=== PATIENT | female | born 1990 | race Caucasian/White ===

== ENCOUNTER 2022-07-25 11:13 | Outpatient (CLI) | payer OTHER, MEDICAID, SELFPAY ==
[2022-07-25 12:31] LABS: Basophils Absolute Auto 0.1 K/mm3 (0.0-0.1); Basophils Percent Auto 1.8 % (0.2-1.2); Eosinophils Absolute Auto 0.2 K/mm3 (0-0.3); Hematocrit 42.5 % (37.0-47.0); Hemoglobin 14.3 g/dL (12.0-15.0); Immature Granulocyte Absolute 0.02 K/mm3 (0.00-0.031); Immature Granulocyte Percent A 0.3 % (0-0.5); Lymphocytes Absolute Auto 2.08 K/mm3 (0.9-3.2); Lymphocytes Percent Auto 34.6 % (18.3-44.2); Mean Corpuscular HGB Conc 33.6 g/dl (32-36); Mean Corpuscular Volume 86.2 fl (80-100); Mean Platelet Volume 9.4 fl (7.4-10.4); Monocytes Absolute Auto 0.4 K/mm3 (0.1-0.6); Monocytes Percent Auto 7.3 % (2.6-8.5); Neutrophils Absolute Auto 3.2 K/mm3 (1.3-6.7); Platelet Count Result 326 k/mm3 (150-375); Red Blood Count 4.93 M/mm3 (4.2-5.4); Red Cell Distribution Width 12.8 % (11.5-14.5)
[2022-07-25 12:42] LABS: Alanine Aminotransferase 43 U/L (6-35); Albumin Level 4.8 g/dL (3.5-5.1); Alkaline Phosphatase 88 U/L (38-126); Anion Gap 8 mmol/L (8-16); Aspartate Amino Transferase 29 U/L (14-36); Bilirubin,Total 0.8 mg/dL (0.2-1.3); Blood Urea Nitrogen 14 mg/dL (7-17); Calcium 9.5 mg/dL (8.4-10.2); Carbon Dioxide 29 mmol/L (22-30); Chloride 101 mmol/L (98-107); Cholesterol 221 mg/dL (0-200); Estimated Glomerular Filt Rate > 60; Glucose 83 mg/dL (65-110); HDL Direct 56 mg/dL; Potassium 4.2 mmol/L (3.4-5.0); Sodium 138 mmol/L (137-145); Triglycerides 100 mg/dL (<150)
[2022-07-25 12:52] LABS: LDL Cholesterol Direct 126 mg/dL
[2022-07-25 12:56] LABS: Hemoglobin A1C 5.3 % (<5.7)
[2022-07-25 13:01] LABS: Vitamin D 25 Hydroxy 33.3 ng/mL
== END 2022-07-25 11:14 | disposition home or self-care (01) ==
PROVIDERS: Visit Provider Nurse Practitioner
DX: E66.9 Obesity, unspecified (principal)
CPT/HCPCS: 36415; 80053; 80061; 82306; 83036; 85025

== ENCOUNTER 2024-05-25 17:01 | Outpatient (CLI) | payer OTHER, SELFPAY ==
--- OUTSIDE RECORDS SUMMARY | 2024-05-25 17:07 | XMS_ITS | Clinical Summary ---
Author Organization [facility] Address [address] [place] [address] Care Team Providers Care Laborer Gold Leaf Name Role Phone Courtney Cole MD Primary Care Provider [phone] Source Comments [facility],non-owned Affiliates and Associated Physician Practices is amultiple site organization consisting of ambulatory clinics and hospital sitesin [place], [place], [place] and [place]. This disclosure is being madepursuant to the Care Everywhere program and may not contain all information available regarding this patient. Last updated 17.[facility] Allergies No known active allergies Medications * Be aware that medications may not be up to date on this document. Alwaysverify current medications with the patient. Medication Sig Dispensed Refills Start Date End Date Status escitalopram (LEXAPRO) 20 MG tablet once daily 07/25/2020 Active Citalopram Hydrobromide (CITALOPRAM PO) Take by mouth once daily Active levothyroxine (SYNTHROID) 100 MCG tablet levothyroxine 100 mcg tablet Active levonorgestrel (MIRENA, 52 MG,) 20 MCG/24HR IUD daily Active tretinoin (RETIN-A) 0.05 % cream Pea sized amount to entire face at night. 30 days supply. 20 g 3 10/31/2020 Active metFORMIN ER 24hr (GLUCOPHAGE XR) 500 MG tablet metformin ER 500 mg tablet,extended release 24 hr 11/25/2020 Active spironolactone (ALDACTONE) 50 MG tablet Take 3 (three) tablets by mouth once daily 90 tablet 1 06/30/2021 Active spironolactone (ALDACTONE) 50 MG tablet TAKE 3 TABLETS BY MOUTH EVERY DAY ( TAKE 1 TABLETFOR 2 WEEKS, THEN 2 TABLETS, THEN INCREASE IF TOLERATED) 90 tablet 07/01/2021 Active Additional Information Patient not taking.Reported on 07/13/2023 spironolactone (Aldactone) 50 MG tablet TAKE 3 TABLETS BY MOUTH EVERY DAY ( TAKE 1 TABLET FOR 2 WEEKS, THEN 2 TABLETS, THEN INCREASE IF TOLERATED) 90 tablet 09/29/2021 Active Additional Information Patient not taking.Reported on 07/13/2023 spironolactone (Aldactone) 50 MG tablet TAKE 3 TABLETS BY MOUTH EVERY DAY ( TAKE 1 TABLET FOR 2 WEEKS, THEN 2 TABLETS, THEN INCREASE IF TOLERATED) 90 tablet 11/13/2021 Active Additional Information Patient not taking.Reported on 07/13/2023 levothyroxine (Synthroid) 175 MCG tablet Take 1 (one) tablet by mouth once daily 06/03/2023 Active tirzepatide (Mounjaro) 2.5 MG/0.5ML injection Inject 10 (ten) mg subcutaneously every 7 days 03/18/2023 Active Zepbound 10 MG/0.5ML injection Inject 10 (ten) mg subcutaneously every 7 days 04/23/2023 Active Victoza 18 MG/3ML pen Inject 1.8 mg subcutaneously once daily 08/08/2021 Active clobetasol (Temovate) 0.05 % ointment Apply to affected area 2 times daily as needed 03/03/2023 Active azelaic acid (Finacea) 15 % gel Apply to affected area as needed Active Active Problems Problem Noted Date Diagnosed Date Submandibular sialolithiasis 07/13/2023 Immunizations Name Administration Dates Next Due FLU VACCINE QUAD IIV4 SPLIT 0.25 ML IM ,12/12/2018 Family History Medical History Relation Name Comments None Known Brother Psoriasis Father None Known Maternal Aunt None Known Maternal Grandfather None Known Maternal Grandmother None Known Maternal Uncle None Known Mother None Known Other None Known Paternal Aunt None Known Paternal Grandfather None Known Paternal Grandmother None Known Paternal Uncle None Known Sister Asthma Neg Hx CVA Neg Hx Cancer - Breast Neg Hx Cancer - Other Neg Hx Cancer - Skin, Melanoma Neg Hx Cancer - Skin, Non Melanoma Neg Hx Eczema Neg Hx Hemophilia Neg Hx Relation Name Status Comments Brother Father Maternal Aunt Maternal Grandfather Maternal Grandmother Maternal Uncle Mother Other Paternal Aunt Paternal Grandfather Paternal Grandmother Paternal Uncle Sister Social History Tobacco Use Types Packs/Day Years Used Date Smoking Tobacco: Never Smokeless Tobacco: Never Tobacco Cessation:Counseling Given: Not Answered Alcohol Use Standard Drinks/Week Comments Yes 0 (1 standard drink = 0.6 oz pur e alcohol) 1 glass a month Sex and Gender Information Value Date Recorded Sex Assigned at Not on file Gender Identity Not on file Sexual Orientation Not on file Last Filed Vital Signs Vital Sign Reading Time Taken Comments Blood Pressure 111/76 07/13/2023 1:24 PM CDT Pulse 67 07/13/2023 1:24 PM CDT Temperature - - Respiratory Rate - - Oxygen Saturation - - Inhaled Oxygen Concentration - - Weight 76.2 kg (168 lb) 07/13/2023 1:24 PM CDT Height 165.1 cm (5' 5 ) 07/13/2023 1:24 PM CDT Body Mass Index 27.96 07/13/2023 1:24 PM CDT Plan of Treatment Upcoming Encounters Date Type Department Care Team (Late st Contact Info) Description 07/06/2024 1:00 PM CDT Office Visit [facility] - ENT [address] [place] [phone] Jens Blair MD [address] [place] [address] [place] [address] Health Maintenance Due Date Last Done Comments PAP SMEAR 1988 HIV SCREENING 05/14/2003 HEPATITIS C SCREENING 05/09/2006 DTAP/TDAP/TD VACCINES (1 - Tdap) 05/14/2007 HEPATITIS B VACCINE (1 of 3 - 19+ 3-dose series) 05/14/2007 COVID-19 VACCINE (1 - 2023-2 5 season) 2023 DEPRESSION SCREENING 02/16/2024 INFLUENZA VACCINE (Season Ended) 2024 01/04/2019, 12/12/2018 ZOSTER VACCINE (1 of 2) 2038 HIB VACCINE Aged Out No longer eligi ble based on patient's age to complete this topic HPV VACCINE Aged Out No longer eligi ble based on patient's age to complete this topic MENINGOCOCCAL (Group B) VACCINE SHARED DECISION-MAKING Aged Out No longer eligible based on patient's age to complete this topic MENINGOCOCCAL GROUPS A/C/Y/W VACCINE Aged Out No longer eligible b ased on patient's age to complete this topic PNEUMOCOCCAL VACCINE Aged Out No long er eligible based on patient's age to complete this topic Care Teams Laborer Gold Leaf Relationship Specialty Start Date End Date Courtney Cole MD PCP - General 07/10/20
--- OUTSIDE RECORDS SUMMARY | 2024-05-25 17:07 | XMS_ITS | Data Portability ---
Author Organization Renee RANDALL Address [address] [place] [address] Care Team Providers Care Cuff Turner Name Role Phone ZURDO AMES Primary Care Provider Unavailabl e Assessment Encounter Date Assessment Date Assessment LastModified by Organization Details LastModified Time 03/18/2023 03/18/2023 32 year old woman with past medical history of hypothyroidis m, anxiety here to meet PCP, refill medications. Not available 03/18/2023 15:27:36 Plan of Treatment Reminders Order Date Submit Date Provider Last Modified By Organization Details Last Modified Time Details Appointments None recorded. Lab TSH, serum or plasma [address], [place], [address], 4 16:09:27 TSH + free T4, serum 2022 023 [facility], [address] [facility], [address], [place], [address], 3 08:24:05 HbA1c (hemoglobi n A1c), blood 2021 022 [email or web address] In-Office Order, Internal Use Only DO Not Attach Compendium DO Not Attach Compendium, Do Not Delete/merge, [id number] 2 09:53:58 TSH + free T4, serum 2021 022 [facility], [address] [facility], [address], [place], [address], 2 04:07:54 TSH + free T4, serum 2021 [facility], [address], [address], [place], [address], 2 08:18:03 Referral dermatolog ist referral 2020 021 ELOY Not available 15:42:22 bariatric medicine referral 2020 021 [facility] ([facility] Management), [address] [facility] , [address], [address], 16:14:27 registered medical assistant referral [address] [facility], [address] [facility] [place], [address], 2 05:00:58 Procedures None recorded. Surgeries None recorded. Imaging None recorded. Medication Orders escitalopr am 20 mg tablet 2023 024 [facility], [address] [place] [address], [id number], 4 14:37:05 levothyrox ine 175 mcg tablet 2023 024 [facility], [address] [place] [address], [id number], 4 14:37:03 escitalopr am 20 mg tablet 2021 022 [facility], [address] [place] [address], [id number], 2 12:38:48 Patient TargetsNo targets recorded. Patient Instructions Encounter Date Encounter Id Patient Instructions Last Modified By Organization Details Last Modified Time 07/01/2020 [id number] I was present and available in the Family Medicine clinic to discuss this patient's care during the appointment. I agree with the resident's assessment and plan as documented. KGR [email or web address] Not available 07/03/2020 08:34:39 08/01/2021 [id number] I was present and available in the family medicine clinic to discuss the patient's care during the appointment and the case was discussed with me. I agree with the resident's assessment and plan as documented. HL [email or web address] Not available 08/04/2021 10:08:45 01/19/2022 [id number] I was present and available in the family medicine clinic to discuss the patient's care during the appointment and the case was discussed with me. I agree with the resident's assessment and plan as documented. HL [email or web address] Not available 01/19/2022 15:28:22 05/12/2022 [id number] I was present and available in the family medicine clinic to discuss the patient's care during the appointment. I agree with the resident's assessment and plan as documented. Edgardo Bhatia [email or web address] Not available 05/14/2022 11:53:19 03/18/2023 [id number] A healthy lifestyle: care instructions Not available 03/18/2023 14:35:21 agree w plan and treatment and was present Dr. 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 Jose Enrique kaur for Weight loss Weight loss Referring Physician: Courtneyoscar [facility], Encounter Date: 07/01/2020 News Specialist Referral for A cne Acne, requesting acutane Referring Physician: Courtneyoscar [facility], Encounter Date: 07/01/2020 Results Created Date Observation Date Name Description Value Unit Range Abnormal Flag Note LastModifiedBy Organization Detail LastModifiedTime 06/29/19 21 06/29/2020 TSH + free T4, serum TSH 0.059 uIU/m L 0.450- 4.500 below low normal Not Available [facility] ([facility]) [address] [place], [address], 06/29/2020 05:09:31 06/29/19 21 06/29/2020 TSH + free T4, serum T4,free(dire ct) 1.49 NG/dL 0.82-1 .77 Not Available [facility] ([facility]) [address] [place], [address], 06/29/2020 05:09:31 11/09/19 21 11/09/2020 TSH+F REE T4 TSH 23.400 uIU/m L 0.450- 4.500 above high normal Not Available [facility] ([facility]) [address] [place], [address], 11/09/2020 08:17:10 11/09/19 21 11/09/2020 TSH+F REE T4 T4,free(dire ct) 0.74 NG/dL 0.82-1 .77 below low normal Not Available [facility] ([facility]) [address] [place], [address], 11/09/2020 08:17:10 01/14/20 21 01/14/2021 TSH+F REE T4 TSH 3.480 uIU/m L 0.450- 4.500 Not Available [facility] ([facility]) [address] [place], [address], 01/14/2021 08:17:39 01/14/20 21 01/14/2021 TSH+F REE T4 T4,free(dire ct) 1.35 NG/dL 0.82-1 .77 Not Available [facility] ([facility]) [address] [place], [address], 01/14/2021 08:17:39 08/02/19 22 08/02/2021 TSH+F REE T4 TSH 0.714 uIU/m L 0.450- 4.500 Not Available [facility] ([facility]) [address] [place], [address], 08/02/2021 08:18:03 08/02/19 22 08/02/2021 TSH+F REE T4 T4,free(dire ct) 1.52 NG/dL 0.82-1 .77 Not Available [facility] ([facility]) [address] [place], [address], 08/02/2021 08:18:03 01/20/20 22 01/20/2022 TSH+F REE T4 TSH 13.800 uIU/m L 0.450- 4.500 above high normal Not Available [facility] ([facility]) [address] [place], [address], 01/20/2022 04:07:54 01/20/20 22 01/20/2022 TSH+F REE T4 T4,free(dire ct) 1.07 NG/dL 0.82-1 .77 Not Available [facility] ([facility]) [address] [place], [address], 01/20/2022 04:07:54 01/20/20 22 01/19/2022 HbA1c (hemo globi n A1c), blood HbA1c 5.4% Not Available In-Office Order Internal Use Only DO Not Attach Compendium DO Not Attach Compendium, Do Not Delete/merge, [id number] 01/19/2022 09:43:21 05/13/19 23 2022 TSH+F REE T4 TSH 1.240 uIU/m L 0.450- 4.500 Not Available [facility] ([facility]) [address] [place], [address], 2022 08:24:05 05/13/19 23 2022 TSH+F REE T4 T4,free(dire ct) 1.18 NG/dL 0.82-1 .77 Not Available [facility] ([facility]) [address] [place], [address], 2022 08:24:05 Result Notes None recorded. Problems Name Problem SNOMED Code Status Onset Date Resolution Date Notes Provider Name and Address Organization Details Recorded Time Hypothyroidis m 73194442 Active 2018 Zurdo Ames MD Attn: Accounting ,[address] [facility], [place], [address] , [place] - [facility] 4 16:21:06 Weight gain 6024202 Active 2019 Not Available [facility] 2 22:36:57 Rosacea 875923896 Active 2019 Not Available [facility] 2 22:36:57 Notes:Some problems listed i n Documents: #[id number], #[id number] could not be added to this patient's chart. Please review these documents and add these problems to the patient's chart manually as needed. Problem Notes None recorded. Procedures Surgical History Date Name Laterality Status Provider Name and Address Organization Details Recorded Time 1 IUD Removal completed Cruzito Brue [place] [facility] 05/03/2020 16:27:15 1 IUD Insertion completed Cruzito Brue [place] [facility] 05/03/2020 16:28:59 Imaging Results None recorded. Procedure Notes None recorded. Medical Equipment None Reported. Allergies No known drug allergies Medications Name Sig Start Date Stop Date Status Note LastModified by Organization Details LastModified Time Mirena 21 mcg/24 hr (up to 8 years) 52 mg intrauter ine device Take 1 device every day by intraute rine route as directed for 1 day. 2020 active Not Available Not Available Not Avai lable levothyro xine 175 mcg tablet Take 1 tablet every day by oral route for 30 days, for hypothyr oidism. [address] Ames to fill medicati on, however, he does want the patient to have lab order drawn . It was discusse d with the patient today , the importan ce of having the lab drawn. She voiced understa nding. Not Available Not Available Not Available tretinoin 0.025 % topical cream 08/01 completed Not Available Not Available Not Available benzoyl peroxide 5 % topical gel APPLY TO THE AFFECTED AREA(S) BY TOPICAL ROUTE ONCE DAILY 08/01 completed Not Available Not Available Not Available diphenoxy late-atro pine 2.5 mg-0.025 mg tablet 12/12 completed Not Available Not Available Not Available tretinoin 0.05 % topical cream APPLY TO THE AFFECTED AREA(S) BY TOPICAL ROUTE ONCE DAILY AT BEDTIME 08/01 completed Not Available Not Available Not Available triamcino lone acetonide 0.1 % topical cream APPLY A THIN LAYER TO THE AFFECTED AREA(S) BY TOPICAL ROUTE 2 TIMES PER DAY 08/01 completed Not Available Not Available Not Available levothyro xine 100 mcg tablet Take 1 tablet every day by oral route. 08/01 completed Not Available Not Available Not Available hydrocort isone 2.5 % topical cream with perineal applicato r active Not Available Not Available Not Available clindamyc in 1 % topical gel APPLY A THIN LAYER TO THE AFFECTED AREA(S) BY TOPICAL ROUTE 2 TIMES PER DAY 08/01 completed Not Available Not Available Not Available triamcino lone acetonide 0.025 % topical cream APPLY CREAM TO FACE TWICE DAILY FOR ONE WEEK 07/01 completed Not Available Not Available Not Available levothyro xine 150 mcg tablet TAKE ONE TABLET BY MOUTH EVERY DAY 06/01 completed dosage increase d to 175mcg Not Available Not Available Not Available levothyro xine 200 mcg tablet Take 1 tablet(s ) every day by oral route. 11/14 completed Not Available Not Available Not Available clobetaso l 0.05 % topical ointment active Not Available Not Available Not Available metformin ER 500 mg tablet,ex tended release 24 hr 03/18 completed Not Available Not Available Not Available spironola ctone 50 mg tablet TAKE THREE TABLETS BY MOUTH EVERY DAY active Not Available Not Available No t Available amoxicill in 875 mg-potass ium clavulana te 125 mg tablet 12/12 completed Not Available Not Available Not Available escitalop hiro 20 mg tablet TAKE ONE TABLET BY MOUTH EVERY DAY active Not Available Not Available No t Available azelaic acid 15 % topical gel active Not Available Not Available Not Available metronida zole 1 % topical gel APPLY TO THE AFFECTED AREA(S) BY TOPICAL ROUTE ONCE DAILY ; RUB IN GENTLY AND COMPLETE LY 07/01 completed Not Available Not Available Not Available clindamyc in-tretin oin 1.2 %-0.025 % topical gel 07/01 completed Not Available Not Available Not Available Victoza 3-Sincere 0.6 mg/0.1 mL (18 mg/3 mL) subcutane ous pen injector 03/18 completed Not Available Not Available Not Available Mirvaso 0.33 % topical gel with pump APPLY A PEA-SIZE D AMOUNT BY TOPICAL ROUTE ONCE DAILY TO COVER AREAS OF FACE WITH THIN LAYER AVOIDING THE EYES AND LIPS 2022 active Not Available Not Available Not Avai lable TRUEplus Pen Needle 31 gauge x / active Not Available Not Available Not Available Mounjaro 7.5 mg/0.5 mL subcutane ous pen injector active Not Available Not Available Not Available Mounjaro 5 mg/0.5 mL subcutane ous pen injector 03/18 completed Not Available Not Available Not Available Mounjaro 10 mg/0.5 mL subcutane ous pen injector active Not Available Not Available Not Available Mounjaro 2.5 mg/0.5 mL subcutane ous pen injector INJECT 1 SYRINGE SUBCUTAN EOUSLY ONCE A WEEK active Not Available Not Available No t Available Zepbound 10 mg/0.5 mL subcutane ous pen injector active Not Available Not Available Not Available Vitals Date Recorded Body height Body mass index (BMI) Body weight Heart rate Oxygen saturation Oxygen saturation in Arterial blood by Pulse oximetry Body temperature Systolic blood pressure Diastolic blood pressure Provider Name and Address Organization Details Last Updated DateTime 1 165.1 cm 36.7 kg/m2 26868.0 7 g 77 /min 98 % 98 % 98.7 [degF] 116 mm[Hg] 66 mm[Hg] Yaron Whyte CMA [place] - [facility] 1 17:22:59 Date Recorded Body weight Heart rate Body temperature Oxygen saturation Oxygen saturation in Arterial blood by Pulse oximetry Systolic blood pressure Diastolic blood pressure Provider Name and Address Organization Details Last Updated DateTime 2 04347.3 6 g 82 /min 98.5 [degF] 98 % 98 % 110 mm[Hg] 64 mm[Hg] Penny Mc CMA [facility] 2 12:16:21 Date Recorded Body height Body mass index (BMI) Body weight Heart rate Body temperature Oxygen saturation Oxygen saturation in Arterial blood by Pulse oximetry Systolic blood pressure Diastolic blood pressure Provider Name and Address Organization Details Last Updated DateTime 2 165.1 cm 38.3 kg/m2 417735. 25 g 78 /min 98.4 [degF] 98 % 98 % 118 mm[Hg] 66 mm[Hg] Elizabeth Mendez MA [facility] 2 09:08:04 Date Recorded Body height Body mass index (BMI) Body weight Heart rate Oxygen saturation Oxygen saturation in Arterial blood by Pulse oximetry Body temperature Systolic blood pressure Diastolic blood pressure Provider Name and Address Organization Details Last Updated DateTime 3 165.1 cm 36.5 kg/m2 32200.5 3 g 69 /min 98 % 98 % 98.6 [degF] 116 mm[Hg] 72 mm[Hg] Reva Yee MA [facility] 3 14:05:15 Date Recorded Body height Body temperature Heart rate Oxygen saturation Oxygen saturation in Arterial blood by Pulse oximetry Body mass index (BMI) Body weight Systolic blood pressure Diastolic blood pressure Provider Name and Address Organization Details Last Updated DateTime 4 165.1 cm 98.1 [degF] 68 /min 99 % 99 % 29.5 kg/m2 22741 g 113 mm[Hg] 75 mm[Hg] Kathleen Cano MA [facility] 4 14:05:53 Social History Question Answer Notes LastModified by Organizat ion Details LastModified Time Tobacco Smoking Status Never Smoker Prashanth moreira [facility] 12/12/2018 15:05:05 What Is Your Level Of Alcohol Consumption? Occasional Information not available 05/03/2020 Do You Or Have You Ever Used E-cigarettes Or Vape? Never Used Electronic Cigarettes Information not available 09/11/2019 What Was The Date Of Your Most Recent Tobacco Screening? 03/18/2023 [email or web address] Information not available 03/18/2023 Do You Or Have You Ever Used Smokeless Tobacco? Never Used Smokeless Tobacco Information not available 09/11/2019 How Much Tobacco Do You Smoke? No Information not available 09/11/2019 Do You Use Any Illicit Or Recreational Drugs? No Information not available 05/03/2020 Sex: Unknown Functional Status None recorded. Mental Status None recorded. Family History Nothing Reported. Medical History No medical history recorded. Gynecological HistoryNo gynecological history recorded. Obstetrics History GPAL:G 0 P 0 0 0 0 Immunizations Vaccine Type Date Status Note Provider Nam e and Address Organization Details Recorded Time Influenza, split virus, quadrivalent, preservative 9 completed Not Available [facility] 03/04/2019 02:38:43 Influenza, split virus, quadrivalent, preservative 9 completed Not Available [facility] 03/04/2019 02:38:46 Past Encounters Encounter ID Performer Location Encounter Start Date Encounter Closed Date Diagnosis/Indication Diagnosis SNOMED-CT Code Diagnosis ICD10 Code Diagnosis Note [id number] Maria Teresa Kimball MD [facility] [address] [address] 12/12/2018 14:47:31 12/13/2018 12:27:31 Hypothyroidism 37779711 E03.9 Chronic, uncontroll ed- Has been on synthroid since 10- Refill levothyrox ine 150, will repeat labs in 6 weeks and change dose as needed Anxiety disorder 6916805 06 F41.9 Chronic, controlled - States medication helps with symptoms, continue escitalopr am 20 mg- Change medication / refer to counselor if symptoms worsen. 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 Advised to pack her own lunch eat more vegetables and lean meats.- Pt unsure about how long her IUD in place, she will contact her previous provider and find out. Advised that we can remove/rep lace her IUD in the future. Active or passive immunization 463690749 Z23 [id number] MD Tip Rooney [address] [facility] [address] [place] [address] 07/31/2019 12:19:25 08/01/2019 13:50:42 Hypothyroidism 08932656 E03.9 Chronic, uncontroll ed- Has been on synthroid since 10- Decrease synthroid from 200 > 175, repeat TSH and free T4 in 6 weeks Adult heal th examination 415858854 Z00.00 - Pt was advised on 30 minutes of mild-moder ate intensity exercise 5x a week.- Counselled on her diet and exercise. Importance of compliance to reduce her risk for heart disease and stroke- Given recent weight gain will order CMP, lipid panel, and HgbA1c to screen for diabetes, HLD, and DEJESUS. Active or passive immunization 956756719 Z23 [id number] Shanti glez MD [facility] [address] [facility] [address] [place] [address] 09/11/2019 08:31:04 09/12/2019 08:40:41 Obesity 091884978 E66.9 Wt: 238 lb (from 226 lb in 11/2018), BMI 38.7HbA1C (5.2), Lipid Panel remarkable for borderline high cholestero l and TGs. Synthyroid dose adjusted at last visit- Weight loss plan discussed with patient including limiting daily calorie intake to 2083-1504 calories to lose 0.5-1lb/we ek. 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 on chronic, unable to assess via phone but appears to be nodulocyst ular inflammato ry on Hxpatient works with Derm, who recommende d metrogel and triamcinol one regimendis cussed normal triple therapy regimen of topical benzoyl, topical abx and oral abxpatient wishes to utilize derm regimentco unseled on risks of steroid use to face, patient aware and accepting of riskwill send for metrogel 1% topical once daily to affected areaswill send for triamcinol one 0.1%, apply BID for 2 weeks to affected areasf/u in 203 weeks with PCP, recommend discussion of steroid cream, and triple therapy regimen [id number] Saroj Mann MD [address] [address] 03/08/2020 08:56:00 03/11/2020 07:41:10 Nodulocystic acne 271924147 L70.0 acute on chronic, unable to assess via phone but appears to be nodulocyst ular inflammato ry per patient - Discussed trying topic tretinoin + topical antibiotic prior to proceeding to oral antibiotic , patient amendable- Follow-up in 2-3 months, if symptoms persist will initiate oral ABx [id number] Marv Ortega MD [address] [address] 04/23/2020 08:31:19 04/24/2020 11:07:06 Contraception care 275954020 Z30.40 Discussed contracept josé luis options- Patient would like to have another Mirena placed.- Appt scheduled for 05/03/2020- Discussed management plan including risk/benef its. Pt voiced understand ing. All questions answered [id number] Cruzito Woo [address] [address] 05/03/2020 15:27:13 2020 08:55:28 Removal of intrauterine device 14618604 Z30.432 Insertion of intrauterine contraceptive device 73085002 Z30.430 Mirena was removed and replaced. Consent signed. Timeout performed. Pt tolerated the procedure without complicati ons. [id number] Tommie Britton MD [address] [address] 07/01/2020 17:05:05 07/02/2020 14:52:02 Weight loss 48061200 R63.4 BMI: 36.7 - Discussed dietary strategies : Emphasizin g reduced caloric intake. Recommende d any diet in which caloric intake is less than caloric expenditur e will lead to weight loss. A deficit of at least 500 kcal per day can be achieved with intake of 1,200 to 1,500 kcal for women and 1,500 to 1,800 kcal for men. The 2015 2020 Dietary Guidelines for Americans reinforce the need to make healthier food and beverage choices by consuming nutrient-d ense foods from all food groups and limiting intake of added sugars, saturated fats, and sodium. -Discussed increasing physical activity: The National [place] for [employer] and Care Excellence recommends 45 to 60 minutes per day of moderate-i ntensity exercise to prevent obesity and 60 to 90 minutes per day to avoid regaining weight - Referral to weightloss mgmt program and RD placed Acne 01493628 L70.9 chronic, uncontroll ed - Patient has had some improvemen t with topical clindamyci n and tretinoin but would like to consider accutane - Will place referral to derm [id number] MD Tip Russell [address] [address] 08/01/2021 11:50:53 08/05/2021 10:33:15 Anxiety disorder 218435706 F41.9 Chronic, controlled ALEXIS-7: 6 (mild)- States medication helps with symptoms, continue escitalopr am 20 mg- Change medication / refer to counselor if symptoms worsen Adult [facility] examination 620727439 Z00.00 - Pt was advised on 30 minutes of mild-moder ate intensity exercise 5x a week.- Counselled on her diet, 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 Advised to pack her own lunch eat more vegetables and lean meats. Hypothyroidism 60164578 E03.9 Chronic, uncontroll ed- Continue levothyrox ine 150 mcg- Check TSH + T4 Excessive sweating 34636 005 R61 Discussed sxs are likely d/t anxiety.- Discussed changing antiperspi rant and using baby powder. If sxs continue to persist and are distressin g can consider topical or oral glycopyrro late [id number] MD Tip Russell [address] [address] 01/19/2022 08:44:55 01/20/2022 12:20:12 Hypothyroidism 50531614 E03.9 Chronic, Ron' s per patient- Worsening of symptoms (diarrhea, weight gain, fatigue)_P arthur- Recheck TSH/T4 and adjust dosing of synthroid if needed Excessive weight gain 22 9975082 R63.5 Note from bariatric surgery from 01/30/21 showed weight gain due to excessive caloric intake- Patient has been keeping a diary of her calories at home and will bring it next appt- She has been on metformin and Victoza in the past, but does not have a diagnosis of diabetes and A1c was 5.4% today. These were likely given for weight loss.Plan- Check thyroid function, if normal we will meet again to discuss further weight loss goals and diet goals- In the future, can consider a GLP to assist with weight loss but would hold off on phentermin e Hyperglycemia 53936860 R 73.9 [id number] Edgardo Bhatia MD [place] [address] [address] [address] 05/12/2022 13:37:21 2022 09:44:08 Hypothyroidism 16637260 E03.9 Chronic, Ron' s per patient- Symptoms improving- TSH elevated at 13.8, synthroid increased to 175 mcgPlan- Continue levothyrox ine to 175 mcg- Obtain TSH and T4 Difficulty maintaining weight loss 375687689 E66.9 We discussed medication options, specifical ly GLPs which for weight loss can be expensive. They are FDA approved for this. She would like to stick with her weight loss program and exercise. [id number] Eddie Hernandez MD [place] [address] [address] 03/18/2023 13:58:38 03/22/2023 14:05:37 Hypothyroidism 33368428 E03.9 hypothyroi dism stable on levothyrox ine 175mcglast TSH April 2022 WNLcontinu e levothyrox ine 175mcgrepe at TSH Anxiety disorder 5062927 06 F41.9 anxiety well controlled with escitalopr am 20mgcontin ue escitalopr am 20mg Overweight 730056468 E66 .3 BMI 29.5weight steadily decreasing on mounjaro, now on 7.5mg dose prescribed by tatiana Hansen 671498539 L71.9 rosacea stablesees dermatolog y- continue mirvaso, spironolac tone 50mg per derm Health Concerns Section Related Observation LastModified by Organization Detai ls LastModified Time None Recorded Concern Status LastModified by Organization Details LastModified Time None Recorded Advance Directives Directive None Recorded Payers Encounter Date Sequence Insurance Name Policy Number Policy Armijo Covered Member ID Armijo Member ID Guarantor Name 07/01/2020 1 [facility] - DOS PRIOR TO 2020 (MEDICAID REPLACEMENT - HMO) Jayshree Wanda Satya [id number] Jayshree J Satya 01/19/2022 1 [employer] [id number] Jayshree J Satya [id number] Jayshree J Satya 05/12/2022 1 UMR [id number] Jayshree J Satya [id number] Jayshree J Satya 03/18/2023 1 UMR [id number] Jayshree Muñoz Satya [id number] Jayshree Wanda Satya Notes Date Note Type Note Provider Name and Address Organization Details Recorded Time 07/01/2020 text/html 30 yo F presents for follow-up. Patient states her acne has signficantly improved. States she has noticed a significant decrease in cystic acne. She has been using clindamycin and tretinoin but would like to consider accutane. Patient is also iinterested in weight loss. States she has tried several diets and is moderately physically active but cannot seem to lose weight. States she used phentermine in the past and it helped he lose 20 lbs. She is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
--- OUTSIDE RECORDS SUMMARY | 2024-05-25 17:07 | XMS_ITS | Encounter Summary ---
Author Organization [facility] Address [address] [facility] [place] [address] Care Team Providers Care Support Group Manager Name Role Phone Courtney Cole MD Primary Care Provider [phone] Reason for Visit * Reason Onset Date Comments MEDICATION REFILL 06/30/2021 Encounter Details Date Type Department Care Team (Late Contact Info) Description 06/30/2021 Refill [facility] [address] [place] [address], [place] [id number] Wendy Chan MD [address] [place] [address] [address] [place] [address] MEDICATION REFILL Social History Tobacco Use Types Packs/Day Years Used Date Smoking Tobacco: Never Smokeless Tobacco: Never Alcohol Use Standard Drinks/Week Comments Yes 0 (1 standard drink = 0.6 oz pur e alcohol) 1 glass a month Sex and Gender Information Value Date Recorded Sex Assigned at Not on file Gender Identity Not on file Sexual Orientation Not on file documented as of this encounter Miscellaneous Notes * Telephone Encounter - Humera Velásquez - 06/30/2021 4:46 PM CDT [place] 01/30/21 [place] 08/01/21 RTC 6mths Humera Velásquez documented in this encounter Plan of Treatment Upcoming Encounters Date Type Department Care Team (Late Contact Info) Description 07/06/2024 1:00 PM CDT Office Visit [facility] [address] [place] [phone] Jens Blair MD [address] [place] [address] [place] [address] documented as of this encounter Visit Diagnoses Not on filedocumented in this encounter Care Teams Support Group Manager Relationship Specialty Start Date End Date Courtney Cole MD PCP - General 07/10/20 documented as of this encounter
--- OUTSIDE RECORDS SUMMARY | 2024-05-25 17:07 | XMS_ITS | Clinical Summary ---
Author Organization [facility] Address [facility] [place] [address] Care Team Providers Care Form Setter Supervisor Name Role Phone Ant Shields MD Primary Care Provider Allergies No known active allergies Medications levothyroxine 100 MCG tablet Take 100 mcg by mouth every morning. Active escitalopram 20 MG tablet Take 20 mg by mouth daily. Active probiotic capsule Take 1 capsule by mouth 3 (three) times daily with meals. Active Family History Medical History Relation Comments None Father None Mother Relation Status Comments Father Mother Social History Tobacco Use Types Packs/Day Years Used Date Smoking Tobacco: Never Smokeless Tobacco: Never Alcohol Use Standard Drinks/Week Comments No 0 (1 standard drink = 0.6 oz pur e alcohol) AUDIT-C Answer Date Recorded Frequency of Alcohol Consumption Never 08/08/2018 Average Number of Drinks Not on file 019 Frequency of Binge Drinking Not on file 07/17 Comments No Sex and Gender Information Value Date Recorded Sex Assigned at Not on file Legal Sex Female 8:33 PM CDT Gender Identity Not on file Sexual Orientation Not on file Last Filed Vital Signs Vital Sign Reading Time Taken Comments Blood Pressure 131/71 08/08/2018 12:43 PM CDT Pulse 75 08/08/2018 12:43 PM CDT Temperature 36.4 C (97.6 F) 08/08/2018 12:43 PM CDT Respiratory Rate 18 08/08/2018 12:43 PM CDT Oxygen Saturation 98% 08/08/2018 12:43 PM CDT Inhaled Oxygen Concentration - - Weight 94.8 kg (209 lb) 08/08/2018 12:43 PM CDT Height 165.1 cm (5' 5 ) 08/08/2018 12:43 PM CDT Body Mass Index 34.78 08/08/2018 12:43 PM CDT Plan of Treatment Health Maintenance Due Date Last Done Comments Cervical Cancer Screening Pa p Smear (Age 30 to 64) Every 3 Years 1988 Annual Physical 05/14/1991 Hepatitis C 2006 DTaP, Tdap and Td Vaccines ( 1 - Tdap) 05/14/2007 Hepatitis B Vaccines (1 of 3 - 19+ 3-dose series) 05/14/2007 Cervical Cancer Screening Pa p with HPV Testing (Age 30 to 64) Every 5 Years 2018 Cervical Cancer Screening with HPV 2018 COVID-19 Vaccine (2023-2 5 season) 2023 HPV Vaccines Aged Out No longer eligi ble based on patient's age to complete this topic Meningococcal B Vaccine Aged Out No l onger eligible based on patient's age to complete this topic Meningococcal Vaccine Aged Out No karo keven eligible based on patient's age to complete this topic Pneumococcal Vaccine: Pediat rics (0 to 5 Years) and At-Risk Patients (6 to 64 Years) Aged Out No longer eligible b ased on patient's age to complete this topic RSV Immunizations Under 20 Months Aged Out No longer eligible based on patient's age to complete this topic Insurance Care Teams Form Setter Supervisor Relationship Specialty Start Date End Date Ant Shields MD PCP - General FAMILY PRACTICE 08/08/18
== END 2024-05-25 17:02 | disposition home or self-care (01) ==
LOC: ANHLAB 17:05
DX: E03.9 Hypothyroidism, unspecified (principal)
CPT/HCPCS: 36415; 84443

== ENCOUNTER 2024-09-12 16:01 | Outpatient (CLI) | payer OTHER, SELFPAY ==
--- OUTSIDE RECORDS SUMMARY | 2024-09-12 16:10 | XMS_ITS | Continuity of Care Document ---
Author Name [facility] Organization [facility] Care Team Providers Care Game Advisor Name Role Phone [facility] Unavailable Unavailable Problems Combined list of problems from Department of Defense and Veterans Affairs facilities. It does not include entries that were removed or entered in error. Problem Status Onset Date Problem Type Date of Resolution Comments Source Administrative Evaluation Services Inactive Condition DoD ASTHMA EXERCISE-INDUCED Active Condition DoD CERVICAL DYSPLASIA: MILD Active Condition DoD Test Negative Inactive Condition DoD Pap Smear (+) Low Grade Squamous Intraepithelial Lesion Active Condition DoD Abnormal Pap Smear Of Cervix Active Condition DoD Gynecologic Services Contraceptive Management Inactive Condition DoD ROUTINE PELVIC EXAM Inactive Condition D oD ACNE VULGARIS Inactive Condition DoD ACROCHORDON Active Condition DoD pain during urination (dysuria) Active Condition DoD Preventive Medicine Establ. Patient Checkup Adult 18-39 Inactive Condition DoD visit for: screening exam venereal disease Inactive Condition DoD visit for: screening exam for malignant neoplasm cervix Inactive Condition DoD ROUTINE GYNECOLOGICAL EXAM WITH CERVICAL PAP SMEAR Inactive Condition DoD CYSTITIS ACUTE Inactive Condition DoD MUSCLE SPASM Inactive Condition DoD BRONCHITIS Inactive Condition [facility] visit for: issue repeat prescription for medication Inactive Condition DoD PHARYNGITIS ACUTE Active Condition DoD CANDIDIASIS VAGINAL Active Condition Do D Laboratory Studies Inactive Condition Do D ANKLE SPRAIN Inactive Condition patient with persisting foot pain times 1 months s/p falling on foot.Patient agreed to take medication as prescribed and follow up as directed or sooner if symptoms worsen DoD Patient Counseling: Active Condition Importance of calcium in diet. DoD Patient Education - Self-Examination Inactive Condition Pt educated about when she needs to start paps. Pt started gardasil vaccine. DoD COMPOUND NEVUS Active Condition Wound care instructions given. Reviewed s/s of infection. Return 7-10 days suture removal DoD HYPOTHYROIDISM Active Condition Hakeem yoo put in referral to annual evaluation to Endocranology DoD sore throat Active Condition DoD ACNE Inactive Condition DoD BENIGN SKIN NEOPLASM Active Condition A,B,C) r/o compound nevi. Will contact patient/parent with results. Reassurance/educa tion/observation. Cancer awareness/prevent ion discussed with patient and mother both verbalized understanding. DoD WARTS Active Condition 2. possibl e warts on scalpsPlanDerm consult [facility] SPRAIN BACK Inactive Condition Advise r est. Note for no PE one week.Local heat and motrin TID for 4d then PRN.Advised observation for any adverse change, especially increasing pain, distress, limitation, numbness, etc. [facility] visit for: administrative purpose Inactive Condition [facility] Established Patient Age 18-39 School / Camp Physical Inactive Condition will check x-r ay to r/o bony abnormality as cause for hip pain. [facility] visit for: issue repeat prescription Inactive Condition hx of ex ercise induced asthma [facility] UPPER RESPIRATORY INFECTION Inactive Condition follow up as needed DoD visit for: refer patient without exam or treatment Inactive Condition [facility] ALLERGIC RHINITIS Active Condition DoD Aftercare Following Surgery Of Oral Cavity Active Condition Tonsillectomy o n 16 August 2003 [facility] TONSILLITIS CHRONIC Active Condition Tonsillectomy on 16 August 2003 [facility] Allergies, Adverse Reactions, Alerts Combined list of allergies from Department of Defense and Veterans Affairs facilities. It does not include entries that were removed or entered in error. Substance Category Reaction Severity Reaction type Status Date Reported Comments Source No Known Allergies Drug allergy (disorder) active 10/05/[address] [place] [address]) Encounters Combined list of: 1) Encounters from Department of Veterans Affairs facilities going backup to the last 18 months, not all VA inpatient encounters are included; 2) Encounters from the Department of Defense facilities going backup to 280 months. Location Location Details Encounter Type Encounter Number Reason For Visit Attending Provider ADM Date DC Date Status Disposition Source [address] [place] [address] Jareth DHLILON [facility] [place] laryngolo gy[place] OUTPATIENT [id number] tonsill ar hypertr opy, pharyng itis, URI's SWATI ZAMUDIO 07/09 Released w/o Limitations [address] [place] [address] Jareth Orlando [facility] [place]O tolaryn Defixoogy) [address] [place] [address] Jareth DHILLON [facility] [place] laryngolo gy) OUTPATIENT [id number] preop T&A SWATI ZAMUDIO 08/07 Released w/o Limitations [address] [place] [address] Jareth DHILLON [facility] [place]O tolaryn gology) [address] [place] [address] Jareth DHILLON [facility] [place] laryngolo gy) OUTPATIENT [id number] postop T&A SWATI ZAMUDIO 08/22 Released w/o Limitations [employer] ([facility] [place]O tolaryn gology) [facility] [employer] ([facility] [place]Ped iatrics) OUTPATIENT [id number] congest ed chest burning asthma SILVESTRE CHUNG 06/13 Released w/o Limitations [facility] [employer] ([facility] [place]P ediatri cs) [address] [place] [address] [employer] ([facility] [place]Ped iatrics) TELE CONSULT [id number] Thyroid Referra l WILLY GUPTA 07/08[facility] [employer] ([facility] [place]P ediatri cs) [address] [place] [address] [employer] ([facility] [place]Fam [facility] Practice Non-GME FHI2) OUTPATIENT [id number] Sore throat MARYSOL RODRIGUEZ 01/31 Released w/o Limitations [facility] [employer] GARCIAB ([facility] [place]F amily Practic e Non-GME FHI2) [address] [place] [address] [employer] ([facility] [place]Fam [facility] Practice Non-GME FHI2) OUTPATIENT [id number] r/o strep MARYSOL RODRIGUEZ 01/31 Released w/o Limitations [facility] [employer] ([facility] [place]F amily Practic e Non-GME FHI2) [facility] [employer] [facility] [place]Fam [facility] Practice Non-GME FHI2) OUTPATIENT [id number] sports physica l MARYSOL RODRIGUEZ 10/09 Released w/o Limitations [address] [place] [address] [employer] ([facility] [place]F amily Practic e Non-GME FHI2) [address] [place] [address] [employer] ([facility] [place]Fam cheyenne Practice Non-GME FHI2) TELE CONSULT [id number] X-RAY RESULTS MILEY HERNANDEZ 10/[address] [place] [address] [employer] ([facility] [place]F amily Practic e Non-GME FHI2) [facility] [employer] ([facility] [place]Ped iatrics) OUTPATIENT [id number] middle back pain-ra diating cell# [phone] MARIUM VIRGEN 03/22 Released w/o Limitations [facility] [employer] ([facility] [place]P ediatri cs) [address] [place] [address] [employer] [facility] [place]) OUTPATIENT [id number] painful growths on scalp KRISH STEVEN 04/28 Released w/o Limitations [facility] [employer] ([facility] [place]) 375[facility] [employer] ([facility] [place]Alex matology) OUTPATIENT [id number] MARCEL BHAKTAKAREY 05/05 Released w/o Limitations [facility] [employer] ([facility] [place]D ermatol ogy) [facility] [employer] ([facility] [place]Alex matology) OUTPATIENT [id number] F/U Acne SAMY ELLER 08/06 Released w/o Limitations [facility] [employer] ([facility] [place]D ermatol ogy) [address] [place] [address] [employer] ([facility] [place]Alex matology) OUTPATIENT [id number] [employer] SAMY ELLER 08/19 Released w/o Limitations [facility] [employer] ([facility] [place]D ermatol ogy) [address] [place] [address] [employer] ([facility] [place] cheyenne Practice Non-GME FHI1) OUTPATIENT [id number] possibl e strep throat NIECY SHETH 11/24 Released w/o Limitations [facility] [employer] ([facility] [place]F amily Practic e Non-GME FHI1) [address] [place] [address] [employer] ([facility] [place])([facility] cheyenne Practice Non-GME FHI2) OUTPATIENT [id number] THYROID MEDS. PH:[phone]*H ABEL DIEGO 12/15 Released w/o Limitations [address] [place] [address] [employer] ([facility] [place]F amily Practic e Non-GME FHI2) [address] [place] [address] [employer] ([facility] [place] cheyenne Practice Non-GME FHI2) OUTPATIENT [id number] mole removal -alread y evaluat ed ABEL DIEGO 12/30 Released w/o Limitations [address] [place] [address] [employer] ([facility] [place]F amily Practic e Non-GME FHI2) [address] [place] [address] [employer] [facility] [place] cheyenne Practice Non-GME FHI2) OUTPATIENT [id number] OUT OF PRESCRI PTION [id number] C# ABEL DIEGO 01/18 Released w/o Limitations [address] [place] [address] [employer] [facility] [place]F amily Practic e Non-GME FHI2) [address] [place] [address] Jareth [facility])([employer]) OUTPATIENT [id number] [facility]# PAP KIM ABEL 05/31 Released w/o Limitations [address] [place] [address] Jareth [facility] ([facility] [place]G ynecolo gy) [address] [place] [address])(Fam che[facility]enne Practice Non-GME FHI2) OUTPATIENT [id number] [phone] TRESA Mcintosh ANKLE-P AIN (MODERA TE) MAYRA HUNTER 10/04 Released w/o Limitations [address] [place] [address])(F amily Practic e Non-GME FHI2) [address] [place] [address])(Fam cheyenne Med Tm B Non-AD BCC) TELE CONSULT [id number] Sherine/ needs refill of synthro id./wan ts 90 day supply- down to 5 pills/5 [phone] MILEY HERNANDEZ 04/[address] [place] [address])(F amily Med Tm B Non-AD BCC) [address] [place] [address])(Fam cheyenne Med Tm B Non-AD BCC) OUTPATIENT [id number] c/o poss yeast infecti on - MAYRA HUNTER 06/11 Released w/o Limitations [address] [place] [address])(F amily Med Tm B Non-AD BCC) [address] [place] [address])(Fam cheyenne Med Tm B Non-AD BCC) TELE CONSULT [id number] ear and throat pain MILEY HERNANDEZ 12/[address] [place] [address])(F amily Med Tm B Non-AD BCC) [address] [place] [address])(Fam cheyenne Med Tm B Non-AD BCC) OUTPATIENT [id number] ears throat [phone] CHAPIS GONZALEZ 12/25 Released w/o Limitations [address] [place] [address])(F amily Med Tm B Non-AD BCC) [address] [place] [address])(Fam cheyenne Med Tm B Non-AD BCC) TELE CONSULT [id number] audioCHAPIS Neff 01/[address] [place] [address] Jareth DHILLON ([facility] [place]F amily Med Tm B Non-AD BCC) [address] [place] [address] Jareth DHILLON ([facility] [place]Fam cheyenne Med Tm B Non-AD BCC) TELE CONSULT [id number] Jayson Miller/U MILEY Rosado 02/[address] [place] [address] Jareth GARCIAB ([facility] [place]F amily Med Tm B Non-AD BCC) [address] [place] [address] Jareth [employer] ([facility] [place]Fam cheyenne Med Tm B Non-AD BCC) TELE CONSULT [id number] Syntrho id refill- SHERINE BRITTL Saritha 03/[address] [place] [address] Jareth GARCIAB [facility] [place]F amily Med Tm B Non-AD BCC) [address] [place] [address] Jareth GARCIAB [facility] [place]Fam cheyenne Med Tm B Non-AD BCC) TELE CONSULT [id number] Med refill - SherineGROVER Lane 04/[address] [place] [address] Jareth DHILLON [facility] [place]F amily Med Tm B Non-AD BCC) [address] [place] [address] Jareth GARCIAB [facility] [place]Sco tt [facility] Team 3) TELE CONSULT [id number] Audio notes phoned in to patient , STEVE CEJA 04/[address] [place] [address] Jareth DHILLON ([facility] [place]S cott [facility] Team 3) [address] [place] [address] Jareth GARCIAB [facility] [place]Fam cheyenne Med Tm B Non-AD BCC) OUTPATIENT [id number] Ear pain and congest ion [phone] MAYRA HUNTER 04/18 Released w/o Limitations [address] [place] [address] Jareth DHILLON [facility] [place]F amily Med Tm B Non-AD BCC) [address] [place] [address] Jareth GARCIAB [facility] [place])(Fam cheyenne Med Tm B Non-AD BCC) OUTPATIENT [id number] poss. UTI - MAYRA Basurto 05/10 Released w/o Limitations [address] [place] [address] Jareth GARCIAB [facility] [place]F amily Med Tm B Non-AD BCC) [address] [place] [address] Jareth GARCIAB [facility] [place])([employer]) OUTPATIENT [id number] [address] annual pap [phone] ROCHELLE JAVIER 06/20 Released w/o Limitations [address] [place] [address] Jareth GARCIAB [facility] [place]G ynecolo gy) [address] [place] [address] Jareth [facility] ([facility] [place]Ob/ Locks[employer] Helper) TELE CONSULT [id number] test results ROCHELLE JAVIER 07/[address] [place] [address] Jareth [facility])(O b/Locksmith Helper) [address] [place] [address] Jareth [facility])(Fam cheyenne Med Tm B Non-AD BCC) TELE CONSULT [id number] Acne Cream Script Renewal /GROVER Belle 08/[address] [place] [address] Jareth GARCIAB [facility] [place]F amily Med Tm B Non-AD BCC) [address] [place] [address] Jareth GARCIAB [facility] [place]Fam cheyenne Med Tm B Non-AD BCC) OUTPATIENT [id number] F/U acne [phone] MAYRA HUNTER 10/31 Released w/o Limitations [address] [place] [address] Jareth GARCIA ([facility] [place]F amily Med Tm B Non-AD BCC) [address] [place] [address] Jareth [facility])(War rior Op Med Cln Tm A Ad) TELE CONSULT [id number] physica l for work Ciara dont TL PEREA 05/[address] [place] [address] Jareth GARCIA ([facility] [place]W arrior Op Med Cln Tm A Ad) [address] [place] [address] Jareth [facility])(Fam cheyenne Med Tm B Non-AD BCC) OUTPATIENT [id number] physica l [phone] MAYRA HUNTER 06/12 Released w/o Limitations [address] [place] [address] Jarteh GARCIA ([facility] [place]F amily Med Tm B Non-AD BCC) [address] [place] [address] Jareth [facility])(Fam cheyenne Med Tm B Non-AD BCC) TELE CONSULT [id number] [facility] Ciara. Inform of lab results . Increas e Synthro id from 100micr ograms to 125 TL PEREA 06/[address] [place] [address] Jareth GARCIA ([facility] [place]F amily Med Tm B Non-AD BCC) [address] [place] [address] Jareth GARCIAB [facility] [place]Fam cheyenne Med Tm B Non-AD BCC) OUTPATIENT [id number] walk in UTI CHAPIS GONZALEZ 06/25 Released w/o Limitations [address] [place] [address] Jareth [employer] ([facility] [place]F amily Med Tm B Non-AD BCC) [address] [place] [address] Jareth DHILLON ([facility] [place])(Fam cheyenne Med Tm B Non-AD BCC) OUTPATIENT [id number] fu medicat ion [phone] CHAPIS GONZALEZ 08/25 Released w/o Limitations [address] [place] [address] Jareth DHILLON ([facility] [place]F amily Med Tm B Non-AD BCC) [address] [place] [address] Jareth [employer] ([facility] [place]Fam cheyenne Med Tm B Non-AD BCC) TELE CONSULT [id number] labs ok continu e minocin TSH-ok cont'sy nthroid f/u in clin for ache in 3mo TL PEREA A 08/[address] [place] [address] Jareth [employer] ([facility] [place]F amily Med Tm B Non-AD BCC) [address] [place] [address] Jareth [employer] ([facility] [place]Fam cheyenne Med Tm B Non-AD BCC) TELE CONSULT [id number] [facility] ent aaron Gonzalez cad tlt SHEILA PEREAAubrie Melara 10/[address] [place] [address] [place] ([facility] [place]F amily Med Tm B Non-AD BCC) [address] [place] [address] [place] ([facility] [place]Fam cheyenne Med Tm B Non-AD BCC) TELE CONSULT [id number] ABEL Shultz 10/[address] [place] [address] [place] ([facility] [place]F amily Med Tm B Non-AD BCC) [address] [place] [address] Jareth [employer] ([facility] [place]Fam cheyenne Med Tm B Non-AD BCC) OUTPATIENT [id number] annual pap [phone] CHAPIS GONZALEZ 10/30 Released w/o Limitations [address] [place] [address] Jareth [employer] ([facility] [place]F amily Med Tm B Non-AD BCC) [address] [place] [address] Jareth [employer] ([facility] [place]Fam cheyenne Med Tm B Non-AD BCC) TELE CONSULT [id number] Lab results ABEL ADAM 11/[address] [place] [address] Jareth RADHAB ([facility] [place]F amily Med Tm B Non-AD BCC) [address] [place] [address] Jareth RADHAB [facility] [place]Ob/ Locksmith Helper) TELE CONSULT [id number] MARY JO Geronimo 11/[address] [place] [address] Jareth [employer] ([facility] [place]O b/Locksmith Helper) [address] [place] [address] Jareth RADHAB [facility] [place]ocksmith Hel[employer] ecology) OUTPATIENT [id number] Abnorma l Pap Smear Of Cervix JAYSON MENJIVARN 12/08 Released w/o Limitations [address] [place] [address] Jareth [facility])(G ynecolo gy) [address] [place] [address])([employer] Hel[employer] ecology) TELE CONSULT [id number] cx bx results JAYSON MENJIVARN 12/[address] [place] [address])(G ynecolo gy) [address] [place] [address])(Fam cheyenne Med Tm B Non-AD BCC) TELE CONSULT [id number] med refill ABEL Ronquillo 02/[address] [place] [address])(F amily Med Tm B Non-AD BCC) [address] [place] [address])(War rior Op Med Cln Tm A Ad) OUTPATIENT [id number] f/u acne [phone] norberto ciara 735 ISABEL FUENTES 03/24 Released w/o Limitations [address] [place] [address])(W arrior Op Med Cln Tm A Ad) [address] [place] [address])(Fam cheyenne Med Tm B Non-AD BCC) TELE CONSULT [id number] Notes Entered by: Wanda BHATT 08 May 2011 1414 ------- ------- ------- ------- -- Med refill synthro id 125 mg daily Ciara/Wanda ortega [phone] would like 90 day supply SONAL PEREZ 05/[address] [place] [address])(F amily Med Tm B Non-AD BCC) Procedures Combined list of: 1) Procedures from Department of Veterans Affairs facilities going back up to thelast 18 months, not all VA non-surgical procedures are included; 2) All procedures from the Department of Defense facilities. Procedure Procedure Type Code Date Perfomer Comments Sourdomenica e Non-Physician Phone Call To Pt/Provider Intermed (11-20 min) Non-Physician Phone Call To Pt/Provider Intermed (11-20 min) [id number] 02/05/2011 ABEL ADAM [facility] Test Test [id number] 12/08/2010 JAYSON BATRES Colposcopy Cervix With Biopsy(s) Colposcopy Cervix With Biopsy(s) [id number] 12/08/2010 JAYSON MENJIVAR [facility] Non-Physician Phone Call To Pt/Provider Intermed (11-20 min) Non-Physician Phone Call To Pt/Provider Intermed (11-20 min) [id number] 11/19/2010 ABEL ADAM [facility] Screening papanicolaou smear; obtaining, preparing and conveyance of cervical or vaginal smear to laboratory 10/30/2010 CHAPIS GONZALEZ [facility] Non-Physician Phone Call To Patient/Provider Brief (5-10min) Non-Physician Phone Call To Patient/Provider Brief (5-10min) [id number] 10/23/2010 ABEL ADAM [facility] Non-Physician Phone Call To Patient/Provider Brief (5-10min) Non-Physician Phone Call To Patient/Provider Brief (5-10min) [id number] 10/08/2010 TL PEREA [facility] Destruction Of Benign Lesion By Cryosurgery 08/25/2010 CHAPIS GONZALEZ [facility] Non-Physician Phone Call To Patient/Provider Brief (5-10min) Non-Physician Phone Call To Patient/Provider Brief (5-10min) [id number] 05/29/2010 TL PEREA [facility] Screening papanicolaou smear; obtaining, preparing and conveyance of cervical or vaginal smear to laboratory 06/20/2009 ROCHELLE JAVIER [facility] Non-Physician Phone Call To Patient/Provider Brief (5-10min) Non-Physician Phone Call To Patient/Provider Brief (5-10min) 08209 04/04/2009 STEVE CEJA [facility] Non-Physician Phone Call To Patient/Provider Brief (5-10min) Non-Physician Phone Call To Patient/Provider Brief (5-10min) 16177 02/18/2009 MILEY HERNANDEZ [facility] Rapid Antigen Identification Streptococcus Group A Beta Hemolytic Rapid Antigen Identification Streptococcus Group A Beta Hemolytic 12185 12/25/2008 CHAPIS GONZALEZ [facility] Biopsy Skin Biopsy Skin [id number] 01/18/2007 ABEL DIEGO [facility] Excision Of Lesion Scalp Benign .6 to 1cm Excision Of Lesion Scalp Benign .6 to 1cm 70258 05/05/2006 KAREY BHAKTA [facility] Excision Of Lesion Scalp Benign Up to .5cm Excision Of Lesion Scalp Benign Up to .5cm 26978 05/05/2006 KAREY BHAKTA [employer] TELE ASSESS & MGT SRV PROV QUAL NONPHYS HLTH CARE PRO TO EST PAT,PARENT,GUARD NOT ORIG REL ASSESS & MGT SRV PROV W/IN PREV 7 DAYS NOR LEAD ASSESS & MGT SRV/PX W/IN NXT 24H/SOON APT; 11-20 MIN MED DIS 02/04/2011 DoD URINE TEST, BY VISUAL COLOR COMPARISON METHODS 12/08/2010 DoD TELE ASSESS & MGT SRV PROV QUAL NONPHYS HLTH CARE PRO TO EST PAT,PARENT,GUARD NOT ORIG REL ASSESS & MGT SRV PROV W/IN PREV 7 DAYS NOR LEAD ASSESS & MGT SRV/PX W/IN NXT 24H/SOON APT; 11-20 MIN MED DIS 11/14/2010 DoD SCREENING PAPANICOLAOU SMEAR; OBTAINING, PREPARING AND CONVEYANCE OF CERVICAL OR VAGINAL SMEAR TO LABORATORY 10/30/2010 DoD TELE ASSESS & MGT SRV PROV QUAL NONPHYS HLTH CARE PRO TO EST PAT,PARENT,GUARD NOT ORIG REL ASSESS & MGT SRV PROV W/IN PREV 7 DAYS NOR LEAD ASSESS & MGT SRV/PX W/IN NXT 24 HR/SOON APT;5-10 MIN MED DIS 10/23/2010 DoD TELE ASSESS & MGT SRV PROV QUAL NONPHYS HLTH CARE PRO TO EST PAT,PARENT,GUARD NOT ORIG REL ASSESS & MGT SRV PROV W/IN PREV 7 DAYS NOR LEAD ASSESS & MGT SRV/PX W/IN NXT 24 HR/SOON APT;5-10 MIN MED DIS 10/07/2010 DoD DESTRUCTION (EG, LASER SURGERY, ELECTROSURGERY, CRYOSURGERY, CHEMOSURGERY, SURGICAL CURETTEMENT), OF BENIGN LESIONS OTHER THAN SKIN TAGS OR CUTANEOUS VASCULAR PROLIFERATIVE LESIONS; UP TO 14 LESIONS 08/25/2010 DoD TELE ASSESS & MGT SRV PROV QUAL NONPHYS HLTH CARE PRO TO EST PAT,PARENT,GUARD NOT ORIG REL ASSESS & MGT SRV PROV W/IN PREV 7 DAYS NOR LEAD ASSESS & MGT SRV/PX W/IN NXT 24 HR/SOON APT;5-10 MIN MED DIS 05/27/2010 DoD SCREENING PAPANICOLAOU SMEAR; OBTAINING, PREPARING AND CONVEYANCE OF CERVICAL OR VAGINAL SMEAR TO LABORATORY 06/20/2009 DoD TELE ASSESS & MGT SRV PROV QUAL NONPHYS HLTH CARE PRO TO EST PAT,PARENT,GUARD NOT ORIG REL ASSESS & MGT SRV PROV W/IN PREV 7 DAYS NOR LEAD ASSESS & MGT SRV/PX W/IN NXT 24 HR/SOON APT;5-10 MIN MED DIS 04/04/2009 DoD TELE ASSESS & MGT SRV PROV QUAL NONPHYS HLTH CARE PRO TO EST PAT,PARENT,GUARD NOT ORIG REL ASSESS & MGT SRV PROV W/IN PREV 7 DAYS NOR LEAD ASSESS & MGT SRV/PX W/IN NXT 24 HR/SOON APT;5-10 MIN MED DIS 02/12/2009 DoD INFECTIOUS AGENT ANTIGEN DETECTION BY IMMUNOASSAY WITH DIRECT OPTICAL (IE, VISUAL) OBSERVATION; STREPTOCOCCUS, GROUP A 12/25/2008 DoD BIOPSY OF SKIN, SUBCUTANEOUS TISSUE AND/OR MUCOUS MEMBRANE (INCLUDING SIMPLE CLOSURE), UNLESS OTHERWISE LISTED; SINGLE LESION 12/30/2006 DoD AMINOLEVULINIC ACID HCL FOR TOPICAL ADMINISTRATION, 20%, SINGLE UNIT DOSAGE FORM (354 MG) 08/19/2006 DoD EXCISION, BENIGN LESION INCLUDING MARGINS, EXCEPT SKIN TAG (UNLESS LISTED ELSEWHERE), SCALP, NECK, HANDS, FEET, GENITALIA; EXCISED DIAMETER 0.6 TO 1.0 CM 05/05/2006 DoD RADIOLOGIC EXAMINATION, ANKLE; 2 VIEWS 11/16/2005 DoD TONSILLECTOMY AND ADENOIDECTOMY; AGE 12 OR OVER 08/16/2003 DoD SCREENING TEST OF VISUAL ACUITY, QUANTITATIVE, BILATERAL 07/22/2002 DoD Social History Combined list of available smoking, tobacco, and other social history from Department of Defense and Veterans Affairs facilities. Social History Type Response Date Comment Sourc e This section is an empty social history section. DoD
--- OUTSIDE RECORDS SUMMARY | 2024-09-12 16:10 | XMS_ITS | Clinical Summary ---
Author Organization [facility] Address [facility] [place] [address] Care Team Providers Care Record Retrieval Specialist Name Role Phone Ant Shields MD Primary [...] 12:43 PM CDT Height 165.1 cm (5' 5) 08/08/2018 12:43 PM CDT Body Mass Index 34.78 08/08/2018 12:43 PM CDT Plan of Treatment Health Maintenance Due Date Last Done Comments Cervical Cancer Screening Pa p Smear (Age 30 to 64) Every 3 Years 1988 Annual Physical 05/14/1991 Hepatitis C 2006 DTaP, Tdap and Td Vaccines ( 1 - Tdap) 05/14/2007 Hepatitis B Vaccines (1 of 3 - 19+ 3-dose series) 05/14/2007 HPV Vaccines (1 - 3-dose SCD M series) 05/14/2015 Cervical Cancer Screening Pa p with HPV Testing (Age 30 to 64) Every 5 Years 2018 Cervical Cancer Screening with HPV 2018 COVID-19 Vaccine (2023-2 5 season) 2023 Meningococcal B Vaccine Aged Out No l onger eligible based on patient's age to complete this topic Meningococcal Vaccine Aged Out No karo keven eligible based on patient's age to complete this topic Pneumococcal Vaccine: Pediat rics (0 to 5 Years) and At-Risk Patients (6 to 49 Years) Aged Out No longer eligible b ased on patient's age to complete this topic RSV Immunizations Under 20 Months Aged Out No longer eligible based on patient's age to complete this topic Insurance Care Teams Record Retrieval Specialist Relationship Specialty Start Date End Date Ant Shields MD PCP - General FAMILY PRACTICE 08/08/18
--- OUTSIDE RECORDS SUMMARY | 2024-09-12 16:10 | XMS_ITS | Data Portability ---
Author Organization [facility] Address [address] [place] [address] Care Team Providers Care Renal Dialysis Technician Name Role Phone ZURDO ORTIZ Primary Care Provider Unavailabl e Assessment Encounter [...] Lab TSH, serum or plasma [address], [place], [address], 16:09:27 TSH + free T4, serum 2022 023 [facility], [address] [facility], [address], [place], [address], 3 08:24:05 HbA1c (hemoglobi n A1c), blood 2021 022 [email or web address] [id number] In-Office Order, Internal Use Only DO Not Attach Compendium DO Not Attach Compendium, Do Not Delete/merge, [id number] 09:53:58 TSH + free T4, serum 2021 022 [facility], [address] [facility], [address], [place], [address], 2 04:07:54 TSH + free T4, serum 2021 022 [facility], [address], [address], [place], [address], 2 08:18:03 Referral None recorded. Procedures None recorded. Surgeries None recorded. Imaging None recorded. Medication Orders escitalopr am 20 mg tablet 2023 024 [facility], [address] [place] [address], [id number], 4 14:37:05 levothyrox ine 175 mcg tablet 2023 024 [facility], [address] [place] [address], [id number], 4 14:37:03 escitalopr am 20 mg tablet 2021 022 [facility], [address] [place] [address], [id number], 2 12:38:48 Patient TargetsNo targets recorded. Patient Instructions Encounter Date Encounter Id Patient Instructions Last Modified By Organization Details Last Modified Time 08/01/2021 [id number] I was present and available in the family medicine clinic to discuss the patient's care during the appointment and the case was discussed with me. I agree with the resident's assessment and plan as documented. HL [email or web address] Not available 08/04/2021 10:08:45 01/19/2022 [id number] I was present and available in the family medicine clinic to discuss the patient's care during the appointment and the case was discussed with me. I agree with the resident's assessment and plan as documented. HL [email or web address] Not available 01/19/2022 15:28:22 05/12/2022 [id number] I was present and available in the family medicine clinic to discuss the patient's care during the appointment. I agree with the resident's assessment and plan as documented. Edgardo Bhatia [email or web address] Not available 05/14/2022 11:53:19 03/18/2023 [id number] A healthy lifestyle: care instructions Not available 03/18/2023 14:35:21 agree w plan and treatment and was present Dr. David mello Not available 03/18/2023 14:31:19 Reason for Referral None Reported. Results Created Date Observation Date Name Description Value Unit Range Abnormal Flag Note LastModifiedBy Organization Detail LastModifiedTime 08/02/19 22 08/02/2021 TSH+F REE T4 TSH 0.714 uIU/m L 0.450- 4.500 Not Available [facility] ([facility]) [address] [place], [address], 08/02/2021 08:18:03 08/02/19 22 08/02/2021 TSH+F REE T4 T4,free(dire ct) 1.52 NG/dL 0.82-1 .77 Not Available [facility] ([facility]) [address] [place], [address], 08/02/2021 08:18:03 01/20/20 22 01/20/2022 TSH+F REE T4 TSH 13.800 uIU/m L 0.450- 4.500 above high normal Not Available [facility] ([facility]) [address] [place], [address], 01/20/2022 04:07:54 01/20/20 22 01/20/2022 TSH+F REE T4 T4,free(dire ct) 1.07 NG/dL 0.82-1 .77 Not Available [facility] ([facility]) [address] [place], [address], 01/20/2022 04:07:54 01/20/20 22 01/19/2022 HbA1c (hemo globi n A1c), blood HbA1c 5.4% Not Available In-Office Order Internal Use Only DO Not Attach Compendium DO Not Attach Compendium, Do Not Delete/merge, [id number] 01/19/2022 09:43:21 05/13/19 23 2022 TSH+F REE T4 TSH 1.240 uIU/m L 0.450- 4.500 Not Available [facility] ([facility]) [address] [facility], [place], [address], 2022 08:24:05 05/13/1905/13/2022 TSH+F REE T4 T4,free(dire ct) 1.18 NG/dL 0.82-1 .77 Not Available [facility] ([facility]) [address] [facility], [place], [address], 2022 08:24:05 Result Notes None recorded. Problems Name Problem SNOMED Code Status Onset Date Resolution Date Notes Provider Name and Address Organization Details Recorded Time Hypothyroidis m 33039407 Active 2018 Zurdo Ortiz MD Attn: Accounting ,[address] [place], [address] , [facility] - [facility] 4 16:21:06 Weight gain 1696142 Active 2019 Not Available [facility] 2 22:36:57 Rosacea 525910979 Active 2019 Not Available [facility] 2 22:36:57 Notes:Some problems listed i n Documents: #[id number], #[id number] could not be added to this patient's chart. Please review these documents and add these problems to the patient's chart manually as needed. Problem Notes None recorded. Procedures Surgical History Date Name Laterality Status Provider Name and Address Organization Details Recorded Time 1 IUD Removal completed Cruzito Brue [place] - [facility] 05/03/2020 16:27:15 1 IUD Insertion completed Cruzito Brue [place] - [facility] 05/03/2020 16:28:59 Imaging Results None recorded. Procedure [...] tablet every day by oral route for 90 days, for hypothyr oidism. 2024 active Not Available Not Available Not Avai lable tretinoin 0.025 % topical cream 08/01 completed [...] % topical cream with perineal applicato r 09/11 completed Not Available Not Available Not Available [...] Available clobetaso l 0.05 % topical ointment 09/11 completed Not Available Not Available Not Available metformin ER 500 mg tablet,ex tended release 24 hr 03/18 completed Not Available Not Available Not Available spironola ctone 50 mg tablet TAKE THREE TABLETS BY MOUTH EVERY DAY 09/11 completed Not Available Not Available Not Available amoxicill in 875 mg-potass ium clavulana te 125 mg tablet 12/12 completed Not Available Not Available Not Available escitalop hiro 20 mg tablet Take 20 mg every day by oral route for 90 days, for depressi on. 2024 active Due to pharmacy not recogniz ing Dr. Ortiz, script placed under Dr. Kimball. Patient has schedule d an upcoming appointm ent on 03/18/23. Not Available Not Available Not Available azelaic acid 15 % topical gel 09/11 completed Not Available Not Available Not Available metronida [...] THIN LAYER AVOIDING THE EYES AND LIPS 09/11 completed Not Available Not Available Not Available TRUEplus Pen Needle 31 gauge x 1/4 active Not Available Not Available Not Available Mounjaro 7.5 mg/0.5 mL subcutane ous pen injector 09/11 completed Not Available Not Available Not Available Mounjaro 5 mg/0.5 mL subcutane ous pen injector 03/18 completed Not Available Not Available Not Available Mounjaro 10 mg/0.5 mL subcutane ous pen injector 09/11 completed Not Available Not Available Not Available Mounjaro 2.5 mg/0.5 mL subcutane ous pen injector INJECT 1 SYRINGE SUBCUTAN EOUSLY ONCE A WEEK 09/11 completed Not Available Not Available Not Available Zepbound 10 mg/0.5 mL subcutane ous pen injector 09/11 completed Not Available Not Available Not Available Vitals Date Recorded Body height Body temperature Heart rate Oxygen saturation Oxygen saturation in Arterial blood by Pulse oximetry Body mass index (BMI) Body weight Systolic And Diastolic Provider Name and Address Organization Details Last Updated DateTime 4 165.1 cm 98.1 [degF] 68 /min 99 % 99 % 29.5 kg/m2 32217 g 113/75 mm[Hg] Kathleen Cano MA [facility] 4 14:05:53 Date Recorded Body height Body mass index (BMI) Body weight Heart rate Oxygen saturation Oxygen saturation in Arterial blood by Pulse oximetry Body temperature Systolic And Diastolic Provider Name and Address Organization Details Last Updated DateTime 3 165.1 cm 36.5 kg/m2 77811.5 3 g 69 /min 98 % 98 % 98.6 [degF] 116/72 mm[Hg] Reva Yee MA [facility] 3 14:05:15 Date Recorded Body weight Heart rate Body temperature Oxygen saturation Oxygen saturation in Arterial blood by Pulse oximetry Systolic And Diastolic Provider Name and Address Organization Details Last Updated DateTime 2 49536.3 6 g 82 /min 98.5 [degF] 98 % 98 % 110/64 mm[Hg] Penny Mc CMA [facility] 2 12:16:21 Date Recorded Body height Body mass index (BMI) Body weight Body temperature Oxygen saturation Oxygen saturation in Arterial blood by Pulse oximetry Heart rate Systolic And Diastolic Provider Name and Address Organization Details Last Updated DateTime 5 165.1 cm 31.5 kg/m2 48534.1 1 g 97.9 [degF] 99 % 99 % 76 /min 107/71 mm[Hg] Kathleen Cano MA [facility] 5 14:45:34 Date Recorded Body height Body mass index (BMI) Body weight Heart rate Body temperature Oxygen saturation Oxygen saturation in Arterial blood by Pulse oximetry Systolic And Diastolic Provider Name and Address Organization Details Last Updated DateTime 2 165.1 cm 38.3 kg/m2 553173. 25 g 78 /min 98.4 [degF] 98 % 98 % 118/66 mm[Hg] Elizabeth Mendez [place] - [facility] 2 09:08:04 Social History Question Answer Notes LastModified by Organizat ion Details LastModified Time Tobacco Smoking Status Never Smoker Prashanth moreira, [place] - [facility] 12/12/2018 15:05:05 What Was The Date Of Your Most Recent Tobacco Screening? 09/11/2024 tirbyma Information not available 09/11/2024 How Much Tobacco Do You Smoke? No Information not available 09/11/2019 Sex: Unknown Functional Status Question Answer Note LastModified by Organizat ion Details LastModified Time Do you use any illicit or recreational drugs? No Information not available 05/03/2020 What is your level of alcohol consumption? Occasional Information not available 05/03/2020 Do you or have you ever used smokeless tobacco? Never used smokeless tobacco Information not available 09/11/2019 Do you or have you ever used e-cigarettes or vape? Never used electronic cigarettes Information not available 09/11/2019 Mental Status None recorded. Family History Nothing Reported. Medical History No medical history recorded. Gynecological HistoryNo gynecological history recorded. Obstetrics History GPAL:G 0 P 0 0 0 0 Immunizations Vaccine Type Date Status Note Provider Nam e and Address Organization Details Recorded Time Tdap 5 completed Not Available [facility] 09/11/2024 14:28:14 Influenza, split virus, quadrivalent, PF 5 completed Not Available [facility] 09/11/2024 14:28:14 Influenza, recombinant, quadrivalent, PF 8 completed Not Available [facility] 09/11/2024 14:28:14 COVID-19, mRNA, LNP-S, PF, 30 mcg/0.3 mL dose 1 completed Not Available [facility] 09/11/2024 14:28:14 COVID-19, mRNA, LNP-S, PF, 30 mcg/0.3 mL dose 1 completed Not Available [facility] 09/11/2024 14:28:14 Influenza, split virus, quadrivalent, PF 3 completed Not Available [facility] 09/11/2024 14:28:14 Influenza, split virus, quadrivalent, preservative 9 completed Not Available [facility] 03/04/2019 02:38:43 Influenza, split virus, quadrivalent, preservative 9 completed Not Available [facility] 03/04/2019 02:38:46 Past Encounters Encounter ID Performer Location Encounter Start Date Encounter Closed Date Diagnosis/Indication Diagnosis SNOMED-CT Code Diagnosis ICD10 Code Diagnosis Note [id number] Maria Teresa Kimball MD [facility] [address] [facility] [address] [place] [address] 12/12/2018 14:47:31 12/13/2018 12:27:31 Hypothyroidism 51073016 E03.9 Chronic, uncontroll ed- Has been on synthroid since 12- Refill levothyrox ine 150, will repeat labs in 6 weeks and change dose as needed Anxiety disorder 9833113 06 F41.9 Chronic, controlled - States medication helps with symptoms, continue escitalopr am 20 mg- Change medication / refer to counselor if symptoms worsen. Adult [facility] examination 840935617 Z00.00 - Pt was advised on 30 [...] in the future. Active or passive immunization 745182381 Z23 [id number] Maria Teresa Kimball MD [facility] [address] [facility] [address] [place] [address] 07/31/2019 12:19:25 08/01/2019 13:50:42 Hypothyroidism 26599215 E03.9 Chronic, uncontroll ed- Has been on synthroid since 12- Decrease synthroid from 200 > 175, repeat TSH and free T4 in 6 weeks Adult [facility] examination 761703882 Z00.00 - Pt was advised on 30 minutes of mild-moder ate intensity exercise 5x a week.- Counselled on her diet and exercise. Importance of compliance to reduce her risk for heart disease and stroke- Given recent weight gain will order CMP, lipid panel, and HgbA1c to screen for diabetes, HLD, and DEJESUS. Active or passive immunization 484460145 Z23 [id number] Arely Rojas MD [facility] [address] [address] 09/11/2019 08:31:04 09/12/2019 08:40:41 Obesity 484808766 E66.9 Wt: 238 lb (from 226 lb in 11/2018), BMI 38.7HbA1C (5.2), Lipid Panel remarkable for borderline high cholestero l and TGs. Synthyroid dose adjusted at last visit- Weight loss plan discussed with patient including limiting daily calorie intake to 9156-8875 calories to lose 0.5-1lb/we ek. Patient also advised to try 16:8 intermitte nt fasting- Patient advised to exercise 5-6 times week- Adopt low-carb diet- [facility]- Patient given informatio n on [facility] bariatric program- f/u in 1 month to reassess [id number] Chloe Guzman MD [place] [address] [address] [address] 02/06/2020 12:32:25 02/07/2020 07:30:41 Nodulocystic acne 249874566 L70.0 acute on chronic, unable to assess [...] of steroid cream, and triple therapy regimen [id number] Edgardo Bhatia MD [place] [address] [address] [facility] [address] [place] [address] 03/08/2020 08:56:00 03/11/2020 07:41:10 Nodulocystic acne 869427696 L70.0 acute on chronic, unable to assess via phone but appears to be nodulocyst ular inflammato ry per patient - Discussed trying topic tretinoin + topical antibiotic prior to proceeding to oral antibiotic , patient amendable- Follow-up in 2-3 months, if symptoms persist will initiate oral ABx [id number] Edgardo Bhatia MD [place] [address] [address] 04/23/2020 08:31:19 04/24/2020 11:07:06 Contraception care 948975203 Z30.40 Discussed contracept josé luis options- Patient would like to have another Mirena placed.- Appt scheduled for 05/03/2020- Discussed management plan including risk/benef its. Pt voiced understand ing. All questions answered [id number] Darlin Cuenca MD [place] [address] [address] 05/03/2020 15:27:13 2020 08:55:28 Removal of intrauterine device 75827144 Z30.432 Insertion of intrauterine contraceptive device 78258704 Z30.430 Mirena was removed and replaced. Consent signed. Timeout performed. Pt tolerated the procedure without complicati ons. [id number] Edgardo Bhatia MD [place] [address] [address] 07/01/2020 17:05:05 07/02/2020 14:52:02 Weight loss 71411151 R63.4 BMI: 36.7 - Discussed dietary strategies [...] sodium. -Discussed increasing physical activity: The National [employer] for [employer] and Care Excellence recommends 45 to 60 minutes per day of moderate-i ntensity exercise to prevent obesity and 60 to 90 minutes per day to avoid regaining weight - Referral to weightloss mgmt program and RD placed Acne 06415560 L70.9 chronic, uncontroll ed - Patient has had some improvemen t with topical clindamyci n and tretinoin but would like to consider accutane - Will place referral to derm [id number] Edgardo Bhatia MD [place] [address] [address] [facility] [address] [place] [address] 08/01/2021 11:50:53 08/05/2021 10:33:15 Anxiety disorder 775206380 F41.9 Chronic, controlled ALEXIS-7: 6 (mild)- States medication helps with symptoms, continue escitalopr am 20 mg- Change medication / refer to counselor if symptoms worsen Adult heal th examination 552210497 Z00.00 - Pt was advised on 30 minutes of mild-moder ate intensity exercise 5x a week.- Counselled on her diet, 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 Advised to pack her own lunch eat more vegetables and lean meats. Hypothyroidism 01230015 E03.9 Chronic, uncontroll ed- Continue levothyrox ine 150 mcg- Check TSH + T4 Excessive sweating 16430 005 R61 Discussed sxs are likely d/t anxiety.- Discussed changing antiperspi rant and using baby powder. If sxs continue to persist and are distressin g can consider topical or oral glycopyrro late [id number] Edgardo Bhatia MD [place] [address] [address] [facility] [address] [place] [address] 01/19/2022 08:44:55 01/20/2022 12:20:12 Hypothyroidism 13034336 E03.9 Chronic, Ron' s per patient- Worsening of symptoms (diarrhea, weight gain, fatigue)_P arthur- Recheck TSH/T4 and adjust dosing of synthroid if needed Excessive weight gain 22 6893303 R63.5 Note from bariatric surgery from 01/30/21 [...] would hold off on phentermin e Hyperglycemia 01153808 R 73.9 [id number] Edgardo Bhatia MD [facility] [address] [facility] [address] [place] [address] 05/12/2022 13:37:21 2022 09:44:08 Hypothyroidism 01998875 E03.9 Chronic, Ron' s per patient- Symptoms improving- TSH elevated at 13.8, synthroid increased to 175 mcgPlan- Continue levothyrox ine to 175 mcg- Obtain TSH and T4 Difficulty maintaining weight loss 495812009 E66.9 We discussed medication options, specifical ly GLPs which for weight loss can be expensive. They are FDA approved for this. She would like to stick with her weight loss program and exercise. [id number] Edgardo Bhatia MD [facility] [address] [facility] [address] [place] [address] 03/18/2023 13:58:38 03/22/2023 14:05:37 Hypothyroidism 56681482 E03.9 hypothyroi dism stable on levothyrox ine 175mcglast TSH April 2022 WNLcontinu e levothyrox ine 175mcgrepe at TSH Anxiety disorder 9949464 06 F41.9 anxiety well controlled with escitalopr am 20mgcontin ue escitalopr am 20mg Overweight 665310872 E66 .3 BMI 29.5weight steadily decreasing on mounjaro, now on 7.5mg dose prescribed by zaid Hansen 384215132 L71.9 rosacea stablesees dermatolog y- continue mirvaso, spironolac tone 50mg per derm Health Concerns Section Related Observation LastModified by Organization Detai ls LastModified Time None Recorded Concern Status LastModified by Organization Details LastModified Time None Recorded Advance Directives Directive None Recorded Payers Insurance Date Sequence Insurance Name Policy Number Policy Armijo Covered Member ID Armijo Member ID Guarantor Name 09/11/2024 1 R [id number] Jayshree Hernadez [id number] Jayshree Hernadez 09/11/2024 1 [facility] PRIOR TO 08/15/2020 (MEDICAID REPLACEMENT - HMO) Jayshree Hernadez [id number] Jayshree Hernadez 09/11/2024 1 [facility] ON OR AFTER 08/15/20 (MEDICAID REPLACEMENT - HMO) Jayshree Hernadez [id number] Jayshree Hernadez OBGyn Episode No OBEpisode recorded.
--- OUTSIDE RECORDS SUMMARY | 2024-09-12 16:10 | XMS_ITS | Clinical Summary ---
Author Organization [facility] Address [address] [place] [address] Care Team Providers Care Rn Telephonic Name Role Phone Courtney Cole MD Primary Care Provider [phone] Source Comments [facility],non-owned Affiliates and Associated Physician Practices is amultiple site organization consisting of ambulatory clinics and hospital sitesin [place], [place], [place] and [place]. This disclosure is being madepursuant to the Care Everywhere program and may not contain all information available regarding this patient. Last updated 17.[facility] Allergies No known active allergies Medications * Be aware that medications may not be up to date on this document. Alwaysverify current medications with the patient. escitalopram (LEXAPRO) 20 MG tablet once daily 07/26/19 21 Active Citalopram Hydrobromide (CITALOPRAM PO) Take by mouth once daily Active levothyroxine (SYNTHROID) 100 MCG tablet levothyroxine 100 mcg tablet Active levonorgestrel (MIRENA, 52 MG,) 20 MCG/24HR IUD daily Acti ve tretinoin (RETIN-A) 0.05 % cream Pea sized amount to entire face at night. 30 days supply. 20 g 3 11/01/19 21 Active metFORMIN ER 24hr (GLUCOPHAGE XR) 500 MG tablet metformin ER 500 mg tablet,extended release 24 hr 11/26/19 21 Active spironolactone (ALDACTONE) 50 MG tablet Take 3 (three) tablets by mouth once daily 90 tablet 1 07/01/19 22 Active spironolactone (ALDACTONE) 50 MG tablet TAKE 3 TABLETS BY MOUTH EVERY DAY ( TAKE 1 TABLETFOR 2 WEEKS, THEN 2 TABLETS, THEN INCREASE IF TOLERATED) 90 tablet 07/02/19 22 Active Additional Information Patient not taking.Reported on 07/13/2023 spironolactone (Aldactone) 50 MG tablet TAKE 3 TABLETS BY MOUTH EVERY DAY ( TAKE 1 TABLET FOR 2 WEEKS, THEN 2 TABLETS, THEN INCREASE IF TOLERATED) 90 tablet 09/30/19 22 Active Additional Information Patient not taking.Reported on 07/13/2023 spironolactone (Aldactone) 50 MG tablet TAKE 3 TABLETS BY MOUTH EVERY DAY ( TAKE 1 TABLET FOR 2 WEEKS, THEN 2 TABLETS, THEN INCREASE IF TOLERATED) 90 tablet 11/14/19 22 Active Additional Information Patient not taking.Reported on 07/13/2023 levothyroxine (Synthroid) 175 MCG tablet Take 1 (one) tablet by mouth once daily 06/03/19 24 Active tirzepatide (Mounjaro) 2.5 MG/0.5ML injection Inject 10 (ten) mg subcutaneously every 7 days 03/18/19 24 Active Zepbound 10 MG/0.5ML injection Inject 10 (ten) mg subcutaneously every 7 days 04/23/19 24 Active Victoza 18 MG/3ML pen Inject 1.8 mg subcutaneously once daily 08/09/19 22 Active clobetasol (Temovate) 0.05 % ointment Apply to affected area 2 times daily as needed 03/03/19 24 Active azelaic acid (Finacea) 15 % gel Apply to affected area as needed Active Active Problems Problem Noted Date Diagnosed Date Submandibular sialolithiasis 07/13/2023 Immunizations Immunization Administration Dates Next Due FLU VACCINE QUAD IIV4 SPLIT 0.25 ML IM 9,12/12/2018 Family History Medical History Relation Name Comments [...] pur e alcohol) 1 glass a month Comments Unknown Sex and Gender Information Value Date Recorded Sex Assigned at Not on file 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 Gender Identity Not on file Sexual Orientation Not on file Last Filed Vital Signs Vital Sign Reading Time Taken Comments Blood Pressure 111/76 07/13/2023 1:24 PM CDT Pulse 67 07/13/2023 1:24 PM CDT Temperature - - Respiratory Rate - - Oxygen Saturation - - Inhaled Oxygen Concentration - - Weight 76.2 kg (168 lb) 07/13/2023 1:24 PM CDT Height 165.1 cm (5' 5) 07/13/2023 1:24 PM CDT Body Mass Index 27.96 07/13/2023 1:24 PM CDT Plan of Treatment Health Maintenance Due Date Last Done Comments HIV SCREENING 05/14/2003 HEPATITIS C SCREENING 05/09/2006 DTAP/TDAP/TD VACCINES (1 - Tdap) 05/14/2007 HEPATITIS B VACCINE (1 of 3 - 19+ 3-dose series) 05/14/2007 PAP SMEAR 2009 HPV VACCINE (1 - 3-dose SCDM series) 05/14/2015 COVID-19 VACCINE (1 - 2023-2 5 season) 2023 DEPRESSION SCREENING 02/16/2024 INFLUENZA VACCINE (#1) 2024 9, 12/12/2018 ZOSTER VACCINE (1 of 2) 2038 [...] patient's age to complete this topic Insurance [facility] Care Teams Rn Telephonic Relationship Specialty Start Date End Date Courtney Cole MD PCP - General 07/10/20
--- OUTSIDE RECORDS SUMMARY | 2024-09-12 16:10 | XMS_ITS | Encounter Summary ---
Author Organization [facility] Address [address] [place] [address] Care Team Providers Care Copy Center Operator Name Role Phone Courtney Cole MD Primary Care Provider [phone] Reason for Visit * Reason Onset Date Comments MEDICATION REFILL 06/30/2021 Encounter Details Date Type Department Care Team (Late st Contact Info) Description 06/30/2021 Refill [facility] [address] [place] [address], [place] [id number] Wendy Chan MD [address] [place] [address] [address] [place] [address] MEDICATION REFILL Social History Tobacco Use Types Packs/Day Years Used Date Smoking Tobacco: Never Smokeless Tobacco: Never Alcohol Use Standard Drinks/Week Comments Yes 0 (1 standard drink = 0.6 oz pur e alcohol) 1 glass a month Comments Unknown Sex and Gender Information Value Date Recorded Sex Assigned at Not on file 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
[2024-09-12 16:50] LABS: Alanine Aminotransferase 40 U/L (6-35); Albumin Level 4.5 g/dL (3.5-5.1); Alkaline Phosphatase 65 U/L (38-126); Anion Gap 8 mmol/L (4-12); Aspartate Amino Transferase 33 U/L (14-36); Bilirubin,Total 0.9 mg/dL (0.2-1.3); Blood Urea Nitrogen 14 mg/dL (7-17); Calcium 9.8 mg/dL (8.4-10.2); Carbon Dioxide 26 mmol/L (22-30); Chloride 103 mmol/L (98-107); Cholesterol 180 mg/dL (0-200); Estimated Glomerular Filt Rate > 60; Glucose 84 mg/dL (65-110); HDL Direct 53 mg/dL; Potassium 4.1 mmol/L (3.4-5.0); Sodium 137 mmol/L (137-145); Total Protein 7.7 g/dL (6.3-8.2); Triglycerides 96 mg/dL (<150)
[2024-09-12 17:28] LABS: Thyroid Stimulating Hormone Reflex 0.363 uIU/mL (0.465-4.68)
[2024-09-12 19:11] LABS: Free T4 Free Thyroxine Reflex 1.30 ng/dL (0.78-2.19)
[2024-09-13 05:30] LABS: Total Triiodothyronine (T3) 0.95 NG/ML (0.82-1.58)
== END 2024-09-12 16:02 | disposition home or self-care (01) ==
DX: E78.5 Hyperlipidemia, unspecified (principal); E03.9 Hypothyroidism, unspecified; E66.811 Obesity, class 1
CPT/HCPCS: 36415; 80053; 80061; 84439; 84443; 84480

== ENCOUNTER 2024-12-19 15:28 | Outpatient (CLI) | payer OTHER, SELFPAY ==
--- OUTSIDE RECORDS SUMMARY | 2024-12-19 16:41 | XMS_ITS | Encounter Summary ---
Author Organization [facility] Address [address] [place] [address] Care Team Providers Care Shift Superintendent Caustic Cresylate Name Role Phone Courtney Cole MD Primary Care Provider [phone] Reason for Visit * Reason Onset Date Comments MEDICATION REFILL 06/30/2021 Encounter Details Date Type Department Care Team (Late st Contact Info) Description 06/30/2021 Refill [facility] [address] [place] [address], [place] [phone] Wendy Chan MD [address] [place] [address] [address] [place] [address] MEDICATION REFILL Social History Tobacco Use Types Packs/Day Years Used Date Smoking Tobacco: Never Smokeless Tobacco: Never Alcohol Use Standard Drinks/Week Comments Yes 0 (1 standard drink = 0.6 oz pur e alcohol) 1 glass a month Comments Unknown Sex and Gender Information Value Date Recorded Sex Assigned at Not on file 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
--- OUTSIDE RECORDS SUMMARY | 2024-12-19 16:41 | XMS_ITS | Clinical Summary ---
Author Organization [facility] Address [address] of [facility] [place] [address] Care Team Providers Care Associate Financial Planner Name Role Phone Ant Shields MD Primary [...] Cancer Screening with HPV 2018 COVID-19 Vaccine (2024-2 6 season) 2024 Influenza Adult (#1) 2024 Hepatitis A Vaccines Aged Out No long er eligible based [...] patient's age to complete this topic Insurance [employer] Care Teams Associate Financial Planner Relationship Specialty Start Date End Date Ant Shields MD PCP - General FAMILY PRACTICE 08/08/18
--- OUTSIDE RECORDS SUMMARY | 2024-12-19 16:41 | XMS_ITS | Clinical Summary ---
Author Organization [facility] Address [address] [place] [address] Care Team Providers Care Career Specialist Name Role Phone Courtney Cole MD Primary Care Provider [phone] Source Comments [facility],non-owned Affiliates and Associated Physician Practices is amultiple site organization consisting of ambulatory clinics and hospital sitesin [place], [place], [place] and [place]. This disclosure is being madepursuant to the Care Everywhere program and may not contain all information available regarding this patient. 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
[2024-12-19 18:12] LABS: Thyroid Stimulating Hormone Reflex 1.620 uIU/mL (0.465-4.68)
== END 2024-12-19 15:29 | disposition home or self-care (01) ==
DX: E03.9 Hypothyroidism, unspecified (principal)
CPT/HCPCS: 36415; 84443